=== PATIENT | female | born 1965 | race Caucasian/White ===

== ENCOUNTER 2022-07-14 15:08 | Emergency (ER) | payer BC, SELFPAY ==
[2022-07-14 15:26] VITALS: BP 127/83; PULSE 72; RESP 18; TEMP 36.5; O2SAT 97
[2022-07-14 15:37] VITALS: RESP 17
--- NOTE | 2022-07-14 15:50 | ED.GENADUL_ITS ---
Discharge Plan Disposition Patient Disposition: HOME Condition: Improving Discharge Details Clinical Impression: Dehiscence of wound Primary Care Provider: Unknown,Unknown ED Provider: Jeff Hanson Home Meds and New Rx's Prescriptions: Continued cetirizine 5 mg Tablet 5 mg PO DAILY levothyroxine 100 mcg Tablet 100 mcg PO DAILY lansoprazole [Prevacid 24Hr] 15 mg Capsule,Delayed Release(Dr/Ec) 15 mg PO DAILY Discharge Instructions Additional Instructions: Remove Mario bandage at bedtime. You may replace this during the day tomorrow for wound compression and stability. Steri-Strips will wear off over approximately 5 to 7 days time. May use the sleeve covering over the next 2 to 4 days as needed. Return to the ER for any acute concern Medical Decision Making 57-year-old female had a lesion removed from her left distal lateral thigh approximately 5 days ago. She struck the area against a car door and suffered wound dehiscence with mild bleeding that was controlled with pressure at the scene. The wound was cleansed, closed with Steri-Strips and discussed with patient that she will have some component of healing by secondary intention. She is improved and stable for outpatient management at this time. HPI General Mode of arrival: ambulatory . Date/Time Provider Initiated Documentation: 07/14/22 15:17 . Limitations to Documentation: no limitations . Information obtained by: patient . History of Present Illness 57 year old F presents to the emergency department with the chief complaint of Left leg wound dehiscence, described as mild, Quality is described as constant, and is localized to the left and lower extremity. Patient reports no radiation. Patient started experiencing this minute(s) and it has been constant. No relieving factors improve symptom(s), No exacerbating factors reported . Patient notes no other symptoms.. Patient did receive the following treatments prior to arrival, none Related Data Home Medications Medication Instructions Recorded Confirmed cetirizine 5 mg tablet 5 mg PO DAILY 07/14/22 07/14/22 lansoprazole 15 mg capsule,delayed 15 mg PO DAILY 07/14/22 07/14/22 release (Prevacid 24Hr) levothyroxine 100 mcg tablet 100 mcg PO DAILY 07/14/22 07/14/22 Allergies Allergy/AdvReac Type Severity Reaction Status Date / Time Iodinated Contrast Media Allergy Severe Hives Unverified 07/14/22 15:31 sumatriptan [From Imitrex] AdvReac Intermediate Other (See Unverified 07/14/22 15:31 Comment) General Stated Complaint: [facility] ANNIE: 4 Review of Systems Narrative: No other complaints, otherwise healthy. PFSH All Active Problems (Updated 07/14/22 @ 15:52 by Jeff Hanson MD) Dehiscence of wound (Acute) Social History Smoking/Tobacco Use Status: Never Smoking risk assessment performed?: Yes Alcohol Intake: never Drug use: Never Do you feel safe at home: Yes Do you feel safe in your relationship?: Yes Exam Narrative Exam Narrative: GEN: awake, alert, oriented 3. Pleasant, well groomed, interactive. HEAD: Normocephalic, atraumatic ENT: Mucous membranes moist, oropharynx unremarkable, External ear exam unr emarkable EYES: PERRL, EOMI CHEST/RESP: No respiratory distress EXT: Full ROM, left lateral distal thigh with approximately 10 cm linear incision with mid 1 to 2 cm wound dehiscence Neuro: Grossly normal neurologic exam, conversant, interactive. Psych: Speech fluent, thoughts congruent, affect normal Course Vital Signs Vital signs: Vital Signs Temperature 36.5 C 07/14/22 15:26 Pulse 72 07/14/22 15:26 Respiratory Rate 18 07/14/22 15:26 Blood Pressure 127/83 07/14/22 15:26 Pulse Oximetry 97 07/14/22 15:26 Temperature 36.5 C 07/14/22 15:26 Temperature Source Temporal Artery Scan 07/14/22 15:26 Pulse 72 07/14/22 15:26 Respiratory Rate 17 07/14/22 15:37 Respiratory Effort 07/14/22 15:37 Respiratory Depth Normal 07/14/22 15:37 Respiratory Pattern Normal 07/14/22 15:37 Blood Pressure 127/83 07/14/22 15:26 Blood Pressure Position Sitting 07/14/22 15:26 Pulse Oximetry 97 07/14/22 15:26 Oxygen Delivery Method Room Air 07/14/22 15:26 Oxygen Flow Rate 0 07/14/22 15:26
== END 2022-07-14 15:57 | disposition home or self-care (01) ==
PROVIDERS: Emergency Provider Emergency Medicine
DX: T81.30XA Disruption of wound, unspecified, initial encounter (principal); X58.XXXA Exposure to other specified factors, initial encounter
CPT/HCPCS: 99281; 99282